=== PATIENT | female | born 1995 | race Caucasian/White ===

== ENCOUNTER → 2016-05-24 | Outpatient (CLI) | payer OTHER | LOC: M OUTALCOH 13:08 | PROVIDERS: ATTEND Psychiatry & Neurology Psychiatry | DX: Z13.9 Encounter for screening, unspecified (principal); F12.20 Cannabis dependence, uncomplicated; F13.20 Sedative, hypnotic or anxiolytic dependence, uncomplicated; F14.20 Cocaine dependence, uncomplicated ==

== ENCOUNTER 2016-06-06 13:00 | Outpatient (RCR) | payer OTHER | END 2016-06-09 | LOC: M OUTALCOH 13:00 | PROVIDERS: ATTEND Psychiatry & Neurology Psychiatry | DX: F12.20 Cannabis dependence, uncomplicated (principal); F13.20 Sedative, hypnotic or anxiolytic dependence, uncomplicated; F14.20 Cocaine dependence, uncomplicated; Z72.0 Tobacco use ==

== ENCOUNTER → 2016-06-07 | Outpatient (CLI) | payer BC, OTHER ==
--- NOTE | 2016-06-07 14:33 | REP ---
LUMBAR SPINE, FIVE VIEWS: HISTORY: Back pain. There is no acute fracture or subluxation. The intervertebral discs are decreased in height consistent with disc degeneration. Osteophytes are present on L1 through L4. The facet joints are normal in appearance. IMPRESSION: Degenerative change as described above. Signed by Bryan Andujar MD 06/07/2016 02:34 P
== END ==
LOC: M WUC 13:03
PROVIDERS: ATTEND Physician Assistant
DX: M54.5 Low back pain (principal)

== ENCOUNTER 2016-07-01 14:00 | Outpatient (RCR) | payer OTHER | END 2016-07-10 | LOC: M OUTALCOH 14:00 | PROVIDERS: ATTEND Psychiatry & Neurology Psychiatry | DX: F12.20 Cannabis dependence, uncomplicated (principal); F13.20 Sedative, hypnotic or anxiolytic dependence, uncomplicated; F14.20 Cocaine dependence, uncomplicated; F17.210 Nicotine dependence, cigarettes, uncomplicated ==

== ENCOUNTER 2016-08-08 13:00 | Outpatient (RCR) | payer OTHER | END 2016-08-09 | disposition home or self-care (01) | LOC: M OUTALCOH 13:00 | PROVIDERS: ATTEND Psychiatry & Neurology Psychiatry | DX: F12.20 Cannabis dependence, uncomplicated (principal); F13.20 Sedative, hypnotic or anxiolytic dependence, uncomplicated; F14.20 Cocaine dependence, uncomplicated; Z72.0 Tobacco use ==

== ENCOUNTER 2016-09-06 14:00 | Outpatient (RCR) | payer OTHER | END 2016-09-09 | LOC: M OUTALCOH 14:00 | PROVIDERS: ATTEND Psychiatry & Neurology Psychiatry | DX: F12.20 Cannabis dependence, uncomplicated (principal); F13.20 Sedative, hypnotic or anxiolytic dependence, uncomplicated; F14.20 Cocaine dependence, uncomplicated; Z72.0 Tobacco use ==

== ENCOUNTER → 2016-10-11 | Outpatient (REF) | payer OTHER | LOC: M LABDRAW1 16:37 | PROVIDERS: ATTEND Obstetrics & Gynecology | DX: Z11.3 Encounter for screening for infections with a predominantly sexual mode of transmission (principal); Z72.51 High risk heterosexual behavior ==

== ENCOUNTER → 2016-10-15 | Outpatient (REF) | payer OTHER | LOC: M LAB REF 09:00 | PROVIDERS: ATTEND Obstetrics & Gynecology | DX: Z11.3 Encounter for screening for infections with a predominantly sexual mode of transmission (principal); Z72.51 High risk heterosexual behavior ==

== ENCOUNTER → 2016-11-28 | Outpatient (REF) | payer OTHER | LOC: M LAB REF 16:27 | PROVIDERS: ATTEND Physician Assistant | DX: B37.3 Candidiasis of vulva and vagina (principal) ==

== ENCOUNTER → 2017-12-20 | Outpatient (REF) | payer OTHER | LOC: M LAB REF 09:40 | DX: N39.0 Urinary tract infection, site not specified (principal) ==

== ENCOUNTER 2018-02-01 13:35 | Emergency (ER) | payer BC, OTHER ==
[~2018-02-01] VITALS: Ht 165.1 cm; Wt 65.0 kg
[2018-02-01 13:35] VITALS: BP 125/66
[2018-02-01] MEDS ORDERED: SOMA250T PO (14:07)
[2018-02-01] MEDS ORDERED: SOMA350T PO (14:14)
== END 2018-02-01 14:42 | disposition home or self-care (01) ==
LOC: M ED 13:35
DX: M54.31 Sciatica, right side (principal); F19.11 Other psychoactive substance abuse, in remission

== ENCOUNTER → 2018-05-12 | Outpatient (REF) | payer OTHER ==
[~2018-05-12] MED LIST: SOMA250T PO; SOMA350T PO
[2018-05-12 13:24] LABS: HEMOGLOBIN 13.1 g/dl (12.0-15.5); MEAN CORPUSCULAR HEMOGLOBIN 29.4 pg (27.0-33.0); MEAN CORPUSCULAR HGB CONC 34.5 g/dl (32.0-36.5); MEAN CORPUSCULAR VOLUME 85.2 fl (80.0-96.0); PLATELET COUNT, AUTOMATED 218 10^3/uL (150-450); RED BLOOD COUNT 4.46 10^6/uL (4.00-5.40); WHITE BLOOD COUNT 7.4 10^3/uL (4.0-10.0)
[2018-05-12 19:23] LABS: HCG, SERUM QUANTITATIVE 107057 MIU/ML
[2018-05-13 10:35] LABS: RUBELLA IgG QUALITATIVE IMMUNE (IMMUNE)
[2018-05-13 11:03] LABS: HEPATITIS C VIRUS ABY INDEX 0.1 INDEX (<0.8); HIV 1&2 SCREEN CENTAUR NEGATIVE (NEGATIVE)
== END ==
LOC: M LAB REF 12:34
PROVIDERS: ATTEND Nurse Practitioner Women's Health
DX: Z32.01 Encounter for pregnancy test, result positive (principal); O36.80X0 Pregnancy with inconclusive fetal viability, not applicable or unspecified; Z3A.00 Weeks of gestation of pregnancy not specified

== ENCOUNTER 2018-06-19 17:02 | Emergency (ER) | payer BC, OTHER ==
[~2018-06-19] VITALS: Ht 165.1 cm; Wt 67.6 kg
[~2018-06-19 17:02] MED LIST changes: +PYRIDOXINE 50 MG TAB PO ONE
[2018-06-19] MEDS ORDERED: PREN29TA4 PO (17:05)
[2018-06-19] MEDS ORDERED: NS 1,000 ML IV ONE (17:30)
[2018-06-19] MEDS ORDERED: METOCLOPRAMIDE INJ 10MG/2ML VIAL (J2765) IV ONE (17:45)
[2018-06-19 18:02] LABS: BASO % 0.1 % (0.0-1.0); EOS % 0.3 % (0.0-3.0); HEMATOCRIT 36.1 % (36.0-47.0); HEMOGLOBIN 12.6 g/dl (12.0-15.5); LYMPH # 1.2 10^3/uL (1.5-6.5); LYMPH % 10.7 % (24.0-44.0); MEAN CORPUSCULAR HEMOGLOBIN 29.3 pg (27.0-33.0); MEAN CORPUSCULAR HGB CONC 34.9 g/dl (32.0-36.5); MONO # 0.4 10^3/uL (0.0-0.8); MONO % 3.6 % (0.0-5.0); NEUTROPHILS # 9.3 10^3/uL (1.8-7.7); PLATELET COUNT, AUTOMATED 190 10^3/uL (150-450)
[2018-06-19 18:24] LABS: ALBUMIN 3.5 GM/DL (3.2-5.2); ALT/SGPT 19 U/L (12-78); BILIRUBIN,DIRECT 0.2 MG/DL (0.0-0.2); BILIRUBIN,TOTAL 1.2 MG/DL (0.2-1.0); BLOOD UREA NITROGEN 13 MG/DL (7-18); CALCIUM LEVEL 9.1 MG/DL (8.5-10.1); CARBON DIOXIDE LEVEL 22 MEQ/L (21-32); CHLORIDE LEVEL 106 MEQ/L (98-107); CREATININE FOR GFR 0.47 MG/DL (0.55-1.30); GLOMERULAR FILTRATION RATE > 60.0 (>60); GLUCOSE, FASTING 77 MG/DL (70-100); LIPASE 86 U/L (73-393); SODIUM LEVEL 136 MEQ/L (136-145); TOTAL PROTEIN 7.2 GM/DL (6.4-8.2)
--- NOTE | 2018-06-19 20:11 | REPVR ---
EXAM: US First Trimester, Transabdominal EXAM DATE/TIME: 06/19/2018 7:40 PM CLINICAL HISTORY: 22 years old, female; complicated by abdominal or pelvic pain; Lower; First trimester; Gestational age or lmp: 12w 3d; ; Additional info: 12 wks, pain TECHNIQUE: Imaging protocol: Real-time transabdominal obstetrical ultrasound of the maternal pelvis and a first trimester , less than 14 weeks 0 days, with image documentation. COMPARISON: No relevant prior studies available. FINDINGS: Other findings: Single status. GESTATION: Gestation: Single gestation. Heart rate: heart rate is 171 beats per minute. Placenta: Unremarkable. Posterior. No subchorionic bleed. Amniotic fluid: Amniotic and chorionic fluid are normal for gestational age. BIOMETRY: Estimated gestational age: Gestational age based on CRL is 12 weeks 3 days. Gestational age based on LMP is 12 weeks 1 day. Angustura-Rump length: pole crown rump length of 60 mm. Estimated due date: MARKO is 12/29/2018. MATERNAL: Uterus: Unremarkable. Cervix: Unremarkable. Right adnexa: Unremarkable. Left adnexa: Cyst on the left ovary measures 2.4 x 1.9 x 2.4 cm may represent a corpus luteal cyst. Intraperitoneal: No intraperitoneal free fluid. IMPRESSION: Unremarkable oral gestation at 12 weeks 3 days using ultrasound measurements. Electronically signed by: Jaswant Roach On 06/19/2018 20:10:46 PM
[2018-06-19] MEDS ORDERED: PROMETHAZINE INJ 25 MG/ML VIAL (J2550) IM ONE (20:30)
[2018-06-19 21:30] VITALS: BP 122/68
== END 2018-06-19 21:57 | disposition home or self-care (01) ==
LOC: M ED 17:02
DX: O21.9 Vomiting of pregnancy, unspecified (principal); Z3A.12 12 weeks gestation of pregnancy; Z86.59 Personal history of other mental and behavioral disorders; Z87.891 Personal history of nicotine dependence
CPT/HCPCS: 76801; 80048; 80076; 81001; 83690; 85025; 96361; 96374; 99284; J2765

== ENCOUNTER 2018-08-02 11:52 | Emergency (ER) | payer BC, OTHER ==
[~2018-08-02] VITALS: Ht 165.1 cm; Wt 72.7 kg
[2018-08-02 11:52] VITALS: BP 124/59
[~2018-08-02 11:52] MED LIST changes: +PREN29TA4 PO; -PYRIDOXINE 50 MG TAB PO ONE
[2018-08-02] MEDS ORDERED: VITACAP8 PO (12:01)
[2018-08-02] MEDS ORDERED: UNIS50CA PO (12:01)
[2018-08-02 12:31] LABS: BASO % 0.2 % (0.0-1.0); EOS # 0.1 10^3/uL (0.0-0.50); EOS % 0.5 % (0.0-3.0); HEMATOCRIT 32.6 % (36.0-47.0); HEMOGLOBIN 11.3 g/dl (12.0-15.5); LYMPH # 1.7 10^3/uL (1.5-6.5); LYMPH % 16.1 % (24.0-44.0); MEAN CORPUSCULAR HEMOGLOBIN 30.1 pg (27.0-33.0); MEAN CORPUSCULAR HGB CONC 34.7 g/dl (32.0-36.5); MEAN CORPUSCULAR VOLUME 86.9 fl (80.0-96.0); MONO # 0.7 10^3/uL (0.0-0.8); MONO % 6.5 % (0.0-5.0); NEUTROPHILS # 8.1 10^3/uL (1.8-7.7); PLATELET COUNT, AUTOMATED 204 10^3/uL (150-450); RED BLOOD COUNT 3.75 10^6/uL (4.00-5.40); WHITE BLOOD COUNT 10.6 10^3/uL (4.0-10.0)
[2018-08-02] MEDS ORDERED: RHOGAM 300 MCG (1500 IU) INJ (J2790) IM ONE (13:45)
--- NOTE | 2018-08-02 13:59 | REP ---
Obstetric ultrasound for vaginal spotting: There is a single intrauterine gestation in a breech presentation. The heart rate is 150 beats minute. The placenta is posterior. There is no placenta previa. Subjectively the amniotic fluid volume is normal. Cervix measures through 0.5 cm length. Gestational age by the first ultrasound is 18 weeks 3 days/MARKO 12/31/2018. Gestational age by LMP is 18 weeks 3 days/MARKO 12/31/2018. Electronically Signed by Steven Ward MD 08/02/2018 01:51 P
== END 2018-08-02 14:35 | disposition home or self-care (01) ==
LOC: M ED 11:52
DX: O26.852 Spotting complicating pregnancy, second trimester (principal); O99.322 Drug use complicating pregnancy, second trimester; Z3A.18 18 weeks gestation of pregnancy; Z79.899 Other long term (current) drug therapy
CPT/HCPCS: 76815; 81001; 84702; 85025; 86850; 86901; 87086; 96372; 99283; J2790

== ENCOUNTER → 2018-10-09 | Outpatient (CLI) | payer BC, OTHER ==
[~2018-10-09] MED LIST changes: +UNIS50CA PO; +VITACAP8 PO
[2018-10-09 11:24] LABS: HEMATOCRIT 33.2 % (36.0-47.0); HEMOGLOBIN 11.4 g/dl (12.0-15.5); MEAN CORPUSCULAR HEMOGLOBIN 31.3 pg (27.0-33.0); MEAN CORPUSCULAR HGB CONC 34.3 g/dl (32.0-36.5); MEAN CORPUSCULAR VOLUME 91.2 fl (80.0-96.0); PLATELET COUNT, AUTOMATED 190 10^3/uL (150-450); RED BLOOD COUNT 3.64 10^6/uL (4.00-5.40); WHITE BLOOD COUNT 10.6 10^3/uL (4.0-10.0)
== END ==
LOC: M LAB 08:49
PROVIDERS: ATTEND Obstetrics & Gynecology
DX: Z34.82 Encounter for supervision of other normal pregnancy, second trimester (principal); Z3A.00 Weeks of gestation of pregnancy not specified

== ENCOUNTER → 2018-10-22 | Outpatient (REF) | payer OTHER | LOC: M LAB REF 16:46 | PROVIDERS: ATTEND Obstetrics & Gynecology | DX: Z34.82 Encounter for supervision of other normal pregnancy, second trimester (principal) ==

== ENCOUNTER → 2018-12-03 | Outpatient (REF) | payer OTHER | LOC: M LAB REF 17:21 | PROVIDERS: ATTEND Obstetrics & Gynecology | DX: Z36.85 Encounter for antenatal screening for Streptococcus B (principal) ==

== ENCOUNTER 2018-12-25 11:56 | Outpatient (CLI) | payer OTHER ==
[~2018-12-25] VITALS: Ht 165.1 cm; Wt 93.9 kg
[2018-12-25 12:14] VITALS: BP 124/67
[2018-12-25] MEDS ORDERED: TUMS500C PO (12:24)
== END 2018-12-25 15:50 | disposition home or self-care (01) ==
LOC: M LDO 11:56
PROVIDERS: ATTEND Obstetrics & Gynecology
DX: O47.1 False labor at or after 37 completed weeks of gestation (principal); Z3A.39 39 weeks gestation of pregnancy
CPT/HCPCS: 59025; G0378; G0463

== ENCOUNTER 2018-12-27 15:44 | Inpatient (IN) | payer BC, OTHER ==
[~2018-12-27] VITALS: Ht 165.1 cm; Wt 93.4 kg
[~2018-12-27 15:44] MED LIST changes: +TUMS500C PO
[2018-12-27 16:09] VITALS: BP 145/77
[2018-12-27 17:44] LABS: HEMATOCRIT 33.4 % (36.0-47.0); MEAN CORPUSCULAR HEMOGLOBIN 28.7 pg (27.0-33.0); MEAN CORPUSCULAR HGB CONC 32.9 g/dl (32.0-36.5); MEAN CORPUSCULAR VOLUME 87.2 fl (80.0-96.0); PLATELET COUNT, AUTOMATED 191 10^3/uL (150-450); RED BLOOD COUNT 3.83 10^6/uL (4.00-5.40); WHITE BLOOD COUNT 14.1 10^3/uL (4.0-10.0)
[2018-12-27 18:12] LABS: ALT/SGPT 25 U/L (12-78); BILIRUBIN,TOTAL 0.5 MG/DL (0.2-1.0); CREATININE FOR GFR 0.52 MG/DL (0.55-1.30); GLOMERULAR FILTRATION RATE > 60.0 (>60); LDH LACTATE DEHYDROGENASE 185 U/L (84-246); URIC ACID 4.3 MG/DL (2.6-6.0)
--- NOTE | 2018-12-27 18:54 | HPE ---
DATE OF ADMISSION: 12/27/2018 REASON FOR ADMISSION: Spontaneous rupture of membranes. HISTORY OF PRESENT ILLNESS: Ms. Balderas is a 23-year-old, 1 who presents at 39 weeks and 3 days estimated gestational age by her last menstrual period confirmed by first trimester ultrasound here with complaints of leakage of clear fluid. She reports at approximately 3 o'clock having a gush of fluid and this was followed by some irregular contractions. She denies any vaginal bleeding. Her course has been unremarkable. She initiated care with [facility], this was done in her first trimester and has been appropriate throughout. PAST MEDICAL HISTORY: History of scoliosis. PAST SURGICAL HISTORY: Oral surgery. PAST OBSTETRICAL HISTORY: She is 2, para 0. PHYSICAL EXAMINATION: Vital signs: Stable. She is afebrile. General appearance: Well appearing, no acute distress. She has a category one heart rate tracing, heart rate 140s, moderate variability, no decelerations, no clear contractions on tocometer. Her lungs are clear to auscultation bilaterally. Cardiovascular: Heart regular rate and rhythm. Abdomen: Soft, gravid, nontender. EFW 3200 grams. Cervical exam: She is 4 cm dilated, 90% effaced, -2, grossly ruptured. LABORATORY DATA: Blood type is A negative. Antibody screen is negative. Rubella is immune. RPR is nonreactive. Chlamydia and gonorrhea screens negative. HIV was negative. Hepatitis C was nonreactive. She had a normal 1 hour Glucola. She is GBS negative. ASSESSMENT: 1. This patient is a 23-year-old, 2, para 0 at 39 weeks 3 days estimated gestational age with spontaneous rupture of membranes. 2. Reassuring status. PLAN: 1. Admit to labor and delivery. 2. CBC, RPR, type and screen, pre-eclamptic panel. 3. Patient is a good candidate for an epidural. 4. Anticipate spontaneous vaginal delivery. ALBER
[2018-12-27] MEDS ORDERED: PROMETHAZINE INJ 25 MG/ML VIAL (J2550) As Ordered ONE (19:18)
[2018-12-27] MEDS ORDERED: BUTORPHANOL 2 MG/ML INJ (J0595) As Ordered ONE (19:19)
[2018-12-27] MEDS ORDERED: PROMETHAZINE INJ 25 MG/ML VIAL (J2550) IV PRN (19:30)
[2018-12-27] MEDS ORDERED: BUTORPHANOL 2 MG/ML INJ (J0595) IV ONE (19:30)
[2018-12-27] MEDS ORDERED: FENTANYL 2MCG/ML ROPIVACAINE 0.2% IN 0.9% NACL 100ML IVBAG As Ordered ONE (19:48)
[2018-12-27] MEDS ORDERED: ONDANSETRON 4MG/2ML VIAL (J2405) IV PRN (21:51)
[2018-12-27] MEDS ORDERED: ePHEDrine SULFATE 25 MG/5 ML(5MG/ML) SYRINGE IV PRN (21:51)
[2018-12-27] MEDS ORDERED: FENTANYL/ROPIVACAINE/NACL BAG 100 ML EPIDURAL SCH (21:51)
[2018-12-27] MEDS ORDERED: REFRIGERATOR IV KEYS XX PRN (21:51)
[2018-12-27] MEDS ORDERED: LACTATED RINGER'S 1000 ML IV PRN (21:51)
[2018-12-27] MEDS ORDERED: EPIDURAL COMMENT XX SCH (21:51)
[2018-12-27] MEDS ORDERED: diphenhydrAMINE INJ 50MG/ML VIAL (J1200) IV PRN (21:51)
[2018-12-27] MEDS ORDERED: NALOXONE INJ 0.4 MG/1 ML VIAL (J2310) IV PRN (21:51)
[2018-12-27] MEDS ORDERED: EPIDURAL/PCA KEYS XX PRN (21:51)
[2018-12-27] MEDS ORDERED: OXYTOCIN 30 UNITS IN 0.9% NaCl 500ML IV BAG (J2590) As Ordered ONE (22:29)
[2018-12-28] MEDS ORDERED: OXYTOCIN DRIP 30 UNITS in IV 1 EA IV SCH (00:10)
[2018-12-28] MEDS ORDERED: ACETAMINOPHEN TAB 650MG DOSE (2X325MG) PO PRN (00:15)
[2018-12-28] MEDS ORDERED: DOCUSATE SODIUM 100 MG CAP PO PRN (00:15)
[2018-12-28] MEDS ORDERED: ACETAMINOPHEN 500 MG TAB PO PRN (00:15)
[2018-12-28] MEDS ORDERED: IBUPROFEN 600 MG TAB PO PRN (00:15)
[2018-12-28] MEDS ORDERED: METHYLERGONOVINE MALEATE 0.2 MG TAB PO PRN (00:15)
[2018-12-28] MEDS ORDERED: MEASLES,MUMPS,RUBELLA VACCINE INJ (MMR-II) (90707) SC SCH (00:15)
[2018-12-28] MEDS ORDERED: ANUSOL HC CREAM 30GM TOP PRN (00:15)
[2018-12-28] MEDS ORDERED: MOM 30ML SUSPENSION UDC PO PRN (00:15)
[2018-12-28] MEDS ORDERED: RHOGAM 300 MCG (1500 IU) INJ (J2790) IM SCH (00:15)
[2018-12-28] MEDS ORDERED: DIBUCAINE 1% OINTMENT 30GM TOP PRN (00:15)
[2018-12-28 02:44] VITALS: BP 110/60
[2018-12-28 05:50] VITALS: BP 104/58
--- NOTE | 2018-12-28 07:36 | DN ---
DATE OF DELIVERY: 12/27/2018 TIME OF : 2349 hour.s GENDER: Male. SCORES: 8 and 9. WEIGHT: 6 pounds, 14 ounces or 3110 grams. LACERATION: First-degree midline laceration. ANESTHESIA: Epidural. ESTIMATED BLOOD LOSS: 300 mL. COUNTS: Five laparotomy sponges were accounted for prior to and after delivery. Two sharps removed from the delivery field. DELIVERY NOTE: On December 27, 2018 at 2349 hours, Mrs. Balderas, a 23-year-old 2 now para 1 had a spontaneous vaginal delivery of a live born male , scores eight and nine, weight was 6 pounds 14 ounces or 3110 grams. Head was delivered OA followed by delivery of right anterior shoulder, left posterior shoulder and corpus. was handed mom with a good cry. Cord was clamped times two and was cut by the father under my direction. Placenta was then drained and delivered grossly intact. A premixed bag of 500 mL of normal saline with 30 units of Pitocin was bolused along with uterine massage until the uterus was firm. On inspection there was a first-degree midline laceration which was repaired through #3-0 Vicryl Rapide. On reinspection the cervix, vagina and perineum was grossly intact and hemostatic. Mom and baby recovered in stable condition. The couple decided name their son Betito. cc: Harry Valero DO
[2018-12-28] MEDS ORDERED: ADACEL/BOOSTRIX VACCINE (DIPHTH/PERTUSS/ACELL/TETANUS)0.5ML SYR (90715) IM ONE (09:00)
[2018-12-28] MEDS: PRENATAL VITAMINS CHEWABLE TABLET PO SCH (09:18)
[2018-12-28 18:00] VITALS: BP 137/91
[2018-12-28] MEDS: IBUPROFEN 800 MG TAB PO PRN (19:52)
[2018-12-29] MEDS: IBUPROFEN 800 MG TAB PO PRN (04:08)
[2018-12-29 06:00] VITALS: BP 113/66
[2018-12-29] MEDS: PRENATAL VITAMINS CHEWABLE TABLET PO SCH (09:33)
[2018-12-29] MEDS ORDERED: ADACEL/BOOSTRIX VACCINE (DIPHTH/PERTUSS/ACELL/TETANUS)0.5ML SYR (90715) IM ONE (12:15)
== END 2018-12-29 13:30 | disposition home or self-care (01) | DRG 560 ==
LOC: M LDO 15:44 → M LDI 16:13 → M OBS 12-28 02:44
PROVIDERS: ADMIT Obstetrics & Gynecology; ATTEND Obstetrics & Gynecology
PROC: 10E0XZZ Delivery of Products of Conception, External Approach (ICD-10-PCS; principal; 2018-12-27)
PROC: 0HQ9XZZ Repair Perineum Skin, External Approach (ICD-10-PCS; 2018-12-27)
DX: O13.4 Gestational [pregnancy-induced] hypertension without significant proteinuria, complicating childbirth (principal); Z37.0 Single live birth; O70.0 First degree perineal laceration during delivery; Z3A.39 39 weeks gestation of pregnancy